=== PATIENT | male | born 1980 | race Two or more races ===

== ENCOUNTER 2025-01-09 07:05 | Day surgery (SDC) | payer MEDICAID ==
[2025-01-03 11:42] LABS: Hemoglobin 13.9 g/dL (13.5-17.5); Mean Corpuscular Volume 76.4 fL (80.0-100.0); Nucleated Red Blood Cells % 0.3 %
[2025-01-03 11:44] LABS: Hematocrit 40.6 % (41.0-53.0); Mean Corpuscular Hemoglobin 26.1 pg (28.0-32.0)
[2025-01-03 11:58] LABS: Urine Protein, UAD Negative (Negative)
[2025-01-03 11:59] LABS: INR 0.99 (0.9-1.15); Partial Thromboplastin Time 25.6 SEC (24.5-34.5); Prothrombin Time 10.5 sec (9.3-11.8)
[2025-01-03 12:21] LABS: Alanine Aminotransferase 19 U/L (7-40); Albumin 4.5 g/dL (3.2-4.8); Alkaline Phosphatase 52 U/L (46-116); Anion Gap 9 (5-15); BUN/Creatinine Ratio 7.8 (10.0-20.0); Blood Urea Nitrogen 10 mg/dL (9-23); Calcium 9.6 mg/dL (8.7-10.4); Carbon Dioxide 28 mmol/L (20-31); Chloride 106 mmol/L (98-107); Glucose 77 mg/dL (74-106); Potassium 3.7 mmol/L (3.5-5.1); Sodium 143 mmol/L (136-145)
[2025-01-03 12:22] LABS: Bilirubin, Total 0.3 mg/dL (0.2-1.0); Total Protein 8.3 g/dL (5.7-8.2)
[~2025-01-09] VITALS: Ht 185.4 cm; Wt 145.1 kg
[2025-01-09] MEDS ORDERED: LIDOCAINE 1% INJ PF 5ML AMP ONE (09:50)
[2025-01-09] MEDS ORDERED: ONDANSETRON HCL 4 MG/2 ML VIAL ONE (09:50)
[2025-01-09] MEDS ORDERED: KETOROLAC TROMETH 30 MG/ML 1ML VIAL ONE (09:50)
[2025-01-09] MEDS ORDERED: GLYCOPYRROLATE 0.2 MG/ML 1ML VIAL ONE (09:51)
[2025-01-09] MEDS ORDERED: PROPOFOL 10 MG/ML 20 ML IV ONE ×3 (09:51→11:42)
[2025-01-09] MEDS ORDERED: ceFAZolin 1GM VL ONE (10:57)
[2025-01-09] MEDS: ceFAZolin 2 GM/D5W50ml 50 ML IV ONE (10:58)
[2025-01-09] MEDS: LIDOCAINE W/ EPINEPHRINE 1% 20ML VIAL ONE (11:00)
[2025-01-09] MEDS: BUPIVACAINE HCL 0.25% P/F 10 ML VIAL ONE (11:00)
[2025-01-09] MEDS ORDERED: KETAMINE 50mg/ML 10ml Vial 10 ML ONE (11:26)
[2025-01-09 11:48] VITALS: PULSE 79; RESP 20; TEMP 98.2
--- NOTE | 2025-01-09 11:55 | DVHOP ---
DATE OF SURGERY: 01/09/2025 PREOPERATIVE DIAGNOSIS: Lipoma of forehead. POSTOPERATIVE DIAGNOSIS: Subgaleal lipoma of forehead. SURGEON: Reagan Richard MD SENIOR ANALYST DEVELOPER: Ramses Montiel. ANESTHESIA: Local with IV sedation. ANESTHESIOLOGIST: Jose Valladares. PROCEDURE: Excision of lipoma. DESCRIPTION OF PROCEDURE: Under local anesthesia with IV sedation, skin prepped and draped. An incision was made over a 5 cm mass on the forehead. The incision extended through skin and subcutaneous tissue. The lipoma was subgaleal. The galea was incised. The lipoma was removed in its entirety. The wound was then profusely irrigated. Irrigant was aspirated. Hemostasis was meticulously accomplished and found to be complete prior to closure. Closure consisted of sutures through the subcutaneous tissues and galea aponeurotica. Skin was approximated using Monocryl suture, Dermabond glue, and Steri-Strips. The patient the procedure, left the operating room following an accurate needle and sponge count. MD ULYSSES Rome/JOSSIE/MARGO TID: [id number] RECEIPT: [id number]
[2025-01-09] MEDS ORDERED: HYDROmorphone HCL 2 MG/ML VL/or syr IV PRN (12:00)
[2025-01-09] MEDS ORDERED: fentaNYL CITRATE 100 MCG/2 ML VL IV PRN (12:00)
[2025-01-09] MEDS ORDERED: ONDANSETRON HCL 4 MG/2 ML VIAL IV PRN (12:00)
[2025-01-09] MEDS ORDERED: NALOXONE HCL 0.4 MG/ML VIAL IV PRN (12:00)
[2025-01-09] MEDS ORDERED: hydrALAZINE HCL 20 MG/ML VL IV PRN (12:00)
[2025-01-09] MEDS ORDERED: FLUMAZENIL 0.1 MG/ML INJ 10ML MDV IV PRN (12:00)
[2025-01-09] MEDS ORDERED: ACE3T PO (12:30)
[2025-01-09 12:33] VITALS: BP 144/94; PULSE 85; RESP 20; O2SAT 95
== END 2025-01-09 12:48 | disposition home or self-care (01) ==
LOC: SUR 07:05
PROVIDERS: ATTEND Surgery
DX: D17.0 Benign lipomatous neoplasm of skin and subcutaneous tissue of head, face and neck (principal); F41.9 Anxiety disorder, unspecified; F32.A Depression, unspecified; Z79.899 Other long term (current) drug therapy; E66.01 Morbid (severe) obesity due to excess calories; Z68.41 Body mass index [BMI] 40.0-44.9, adult
CPT/HCPCS: 21011; 36415; 80053; 81001; 85025; 85610; 85730; 88304; J0690; J1100; J1885; J2405; J2704; J3490